=== PATIENT | male | born 1980 | race Caucasian/White ===

== ENCOUNTER 2021-09-06 09:06 | Day surgery (SDC) | payer OTHER ==
[2021-09-05 11:19] VITALS: BMI 27.3
[2021-09-06] MEDS ORDERED: KETAMINE HCL 500 MG/10 ML VIAL ONE (10:16)
[2021-09-06 10:48] LABS: ALBUMIN 4.1 g/dl (3.4-5.0); CALCIUM 9.5 mg/dl (8.5-10); CREATININE 0.9 mg/dl (0.55-1.3); HEMATOCRIT 45.7 % (35.4-49); HEMOGLOBIN 15.9 G/dL (11.7-16.9); MAGNESIUM 2.2 mg/dL (1.8-2.4); MCH 31.8 pg (25.7-33.7); MCHC 34.8 g/dl (32.0-35.9); MEAN CELL VOLUME 91.3 fl (80-96); MEAN PLT VOLUME 11.1 fl (7.5-11.1); PLATELET COUNT 142.3 10^3/uL (134-434); RBC 5.01 10^6/uL (4.00-5.60); RDW 13.7 % (11.9-15.9); TOT PROT 6.6 g/dl (6.4-8.2); WHITE BLOOD COUNT 9.8 10^3/uL (4.0-10.8)
[2021-09-06 11:18] LABS: PLATELET ESTIMATE ADEQUATE
[2021-09-06 12:05] VITALS: RESP 16; TEMP 98.6
[2021-09-06 12:08] VITALS: BP 121/75; PULSE 64
== END 2021-09-06 12:00 | disposition home or self-care (01) ==
LOC: FECT 09:06
PROVIDERS: ATTEND Psychiatry & Neurology Psychiatry
PROC: GZB4ZZZ Other Electroconvulsive Therapy (ICD-10-PCS; principal; 2021-09-06 10:38)
DX: F33.9 Major depressive disorder, recurrent, unspecified (principal)
CPT/HCPCS: 36415; 80053; 83735; 85027; 90870; 93005; 94760

== ENCOUNTER 2021-09-11 08:25 | Day surgery (SDC) | payer OTHER ==
[2021-09-06 12:26] VITALS: BMI 27.3
[2021-09-11 08:56] VITALS: RESP 18
[2021-09-11] MEDS ORDERED: KETAMINE HCL 200 MG/20 ML VIAL ONE (09:36)
[2021-09-11 11:33] VITALS: BP 131/79; PULSE 69; TEMP 98
== END 2021-09-11 11:15 | disposition home or self-care (01) ==
LOC: FECT 08:25
PROVIDERS: ATTEND Psychiatry & Neurology Psychiatry
PROC: GZB4ZZZ Other Electroconvulsive Therapy (ICD-10-PCS; principal; 2021-09-11 09:44)
DX: F33.2 Major depressive disorder, recurrent severe without psychotic features (principal)
CPT/HCPCS: 90870; 94760

== ENCOUNTER 2021-09-13 06:30 | Day surgery (SDC) | payer OTHER ==
[2021-09-05 11:41] VITALS: BMI 27.3
[2021-09-13] MEDS ORDERED: KETAMINE HCL 500 MG/10 ML VIAL ONE (07:50)
[2021-09-13 09:02] VITALS: RESP 18; TEMP 97.9
[2021-09-13 09:19] VITALS: BP 136/72; PULSE 68
== END 2021-09-13 09:59 | disposition home or self-care (01) ==
LOC: FECT 06:30
PROVIDERS: ATTEND Psychiatry & Neurology Psychiatry
PROC: GZB4ZZZ Other Electroconvulsive Therapy (ICD-10-PCS; principal; 2021-09-13 07:58)
DX: F33.2 Major depressive disorder, recurrent severe without psychotic features (principal)
CPT/HCPCS: 90870; 94760

== ENCOUNTER 2021-09-18 07:00 | Day surgery (SDC) | payer OTHER ==
[2021-09-17 13:40] VITALS: BMI 27.3
[2021-09-18] MEDS ORDERED: KETAMINE HCL 500 MG/10 ML VIAL ONE (08:18)
[2021-09-18 08:59] VITALS: TEMP 97.6
[2021-09-18 09:12] VITALS: RESP 18
[2021-09-18 11:09] VITALS: BP 129/89; PULSE 77
== END 2021-09-18 10:30 | disposition home or self-care (01) ==
LOC: FECT 07:00
PROVIDERS: ATTEND Psychiatry & Neurology Psychiatry
PROC: GZB4ZZZ Other Electroconvulsive Therapy (ICD-10-PCS; principal; 2021-09-18 08:28)
DX: F33.9 Major depressive disorder, recurrent, unspecified (principal)
CPT/HCPCS: 90870; 94760

== ENCOUNTER 2021-09-20 06:03 | Day surgery (SDC) | payer OTHER ==
[2021-09-20 06:47] VITALS: RESP 16; BMI 27.3
[2021-09-20] MEDS ORDERED: KETAMINE HCL 500 MG/10 ML VIAL ONE (07:51)
[2021-09-20] MEDS ORDERED: SUCCINYLCHOLINE CHLORIDE 200 MG/10 ML SYRINGE ONE (07:53)
[2021-09-20 09:51] VITALS: TEMP 97.8
[2021-09-20 09:55] VITALS: BP 138/91; PULSE 74
== END 2021-09-20 10:10 | disposition home or self-care (01) ==
LOC: FECT 06:03
PROVIDERS: ATTEND Psychiatry & Neurology Psychiatry
PROC: GZB4ZZZ Other Electroconvulsive Therapy (ICD-10-PCS; principal; 2021-09-20 08:01)
DX: F33.9 Major depressive disorder, recurrent, unspecified (principal)
CPT/HCPCS: 90870; 94760

== ENCOUNTER 2021-09-25 06:45 | Day surgery (SDC) | payer OTHER ==
[2021-09-20 11:03] VITALS: BMI 27.3
[2021-09-25] MEDS ORDERED: KETAMINE HCL 500 MG/10 ML VIAL ONE (07:34)
[2021-09-25 08:09] VITALS: TEMP 97.2
[2021-09-25 09:04] VITALS: RESP 18
[2021-09-25 09:24] VITALS: BP 150/90; PULSE 72
== END 2021-09-25 10:11 | disposition home or self-care (01) ==
LOC: FECT 06:45
PROVIDERS: ATTEND Psychiatry & Neurology Psychiatry
PROC: GZB4ZZZ Other Electroconvulsive Therapy (ICD-10-PCS; principal; 2021-09-25 07:44)
DX: F33.9 Major depressive disorder, recurrent, unspecified (principal)
CPT/HCPCS: 90870; 94760

== ENCOUNTER 2021-09-27 06:32 | Day surgery (SDC) | payer OTHER ==
[2021-09-20 11:07] VITALS: BMI 27.3
[2021-09-27] MEDS ORDERED: KETAMINE HCL 500 MG/10 ML VIAL ONE (08:26)
[2021-09-27 10:14] VITALS: TEMP 98.2
[2021-09-27 11:05] VITALS: RESP 16
[2021-09-27 11:57] VITALS: BP 129/90; PULSE 71
== END 2021-09-27 11:40 | disposition home or self-care (01) ==
LOC: FECT 06:32
PROVIDERS: ATTEND Psychiatry & Neurology Psychiatry
PROC: GZB4ZZZ Other Electroconvulsive Therapy (ICD-10-PCS; principal; 2021-09-27 08:48)
DX: F33.9 Major depressive disorder, recurrent, unspecified (principal)
CPT/HCPCS: 90870; 94760

== ENCOUNTER → 2021-10-02 | Day surgery (SDC) | payer OTHER ==
[2021-09-26 17:58] VITALS: BMI 27.3
[~2021-10-02] MED LIST: ACETAMINOPHEN 325 MG TABLET (FP) PO PRN; KETAMINE HCL 500 MG/10 ML VIAL ONE; LABETALOL HCL 5 MG/1 ML (100MG/20 ML VIAL) IVPUSH ONE; LACTATED RINGERS SOLUTION 1,000 ML IV SCH; METOPROLOL TARTRATE 5 MG/5 ML VIAL ONE; PROMETHAZINE HCL 25 MG/1 ML VIAL IVPUSH PRN
[2021-10-02 09:48] VITALS: RESP 16; TEMP 97.7
[2021-10-02 10:56] VITALS: BP 127/80; PULSE 66
== END | disposition home or self-care (01) ==
LOC: FECT 06:20
PROVIDERS: ATTEND Psychiatry & Neurology Psychiatry
PROC: GZB4ZZZ Other Electroconvulsive Therapy (ICD-10-PCS; principal; 2021-10-02 08:20)
DX: F32.A Depression, unspecified (principal)
CPT/HCPCS: 90870; 94760

== ENCOUNTER 2021-10-04 08:04 | Day surgery (SDC) | payer OTHER ==
[2021-09-26 18:11] VITALS: BMI 27.3
[2021-10-04] MEDS ORDERED: KETAMINE HCL 500 MG/10 ML VIAL ONE (09:27)
[2021-10-04] MEDS ORDERED: LABETALOL HCL 5 MG/1 ML (100MG/20 ML VIAL) IVPUSH ONE (09:55)
[2021-10-04 10:46] VITALS: RESP 18
[2021-10-04 10:51] VITALS: TEMP 97.7
[2021-10-04 11:20] VITALS: BP 144/100; PULSE 78
== END 2021-10-04 12:15 | disposition home or self-care (01) ==
LOC: FECT 08:04
PROVIDERS: ATTEND Psychiatry & Neurology Psychiatry
PROC: GZB4ZZZ Other Electroconvulsive Therapy (ICD-10-PCS; principal; 2021-10-04 09:38)
DX: F32.A Depression, unspecified (principal)
CPT/HCPCS: 90870; 94760

== ENCOUNTER 2021-10-09 07:00 | Day surgery (SDC) | payer OTHER ==
[2021-10-04 16:28] VITALS: BMI 27.3
[2021-10-09 09:42] VITALS: RESP 16
[2021-10-09 10:03] VITALS: BP 124/89; PULSE 78; TEMP 98.6
== END 2021-10-09 10:35 | disposition home or self-care (01) ==
LOC: FECT 07:00
PROVIDERS: ATTEND Psychiatry & Neurology Psychiatry
PROC: GZB4ZZZ Other Electroconvulsive Therapy (ICD-10-PCS; principal; 2021-10-09 08:39)
DX: F32.A Depression, unspecified (principal)
CPT/HCPCS: 90870; 94760

== ENCOUNTER 2021-10-11 06:21 | Day surgery (SDC) | payer OTHER ==
[2021-10-09 13:14] VITALS: BMI 27.3
[2021-10-11] MEDS ORDERED: KETOROLAC TROMETHAMINE 30 MG/1 ML VIAL ONE (07:26)
[2021-10-11] MEDS ORDERED: KETAMINE HCL 500 MG/10 ML VIAL ONE (07:26)
[2021-10-11] MEDS ORDERED: PROPOFOL 20 ML ONE (07:30)
[2021-10-11] MEDS ORDERED: LIDOCAINE HCL/PF 2% SDV 5ML VIAL ONE (07:30)
[2021-10-11] MEDS ORDERED: ONDANSETRON 4 MG/2 ML VIAL ONE (07:30)
[2021-10-11] MEDS ORDERED: SUCCINYLCHOLINE CHLORIDE 200 MG/10 ML SYRINGE ONE (07:31)
[2021-10-11 08:17] VITALS: TEMP 98
[2021-10-11 09:07] VITALS: RESP 18
[2021-10-11 09:09] VITALS: BP 124/86; PULSE 77
[2021-10-11] MEDS ORDERED: ONDANSETRON 4 MG/2 ML VIAL IVPUSH PRN (09:52)
[2021-10-11] MEDS ORDERED: LACTATED RINGERS SOLUTION 1,000 ML IV SCH (10:00)
== END 2021-10-11 09:05 | disposition home or self-care (01) ==
LOC: FECT 06:21
PROVIDERS: ATTEND Psychiatry & Neurology Psychiatry
PROC: GZB4ZZZ Other Electroconvulsive Therapy (ICD-10-PCS; principal; 2021-10-11 07:43)
DX: F33.2 Major depressive disorder, recurrent severe without psychotic features (principal)
CPT/HCPCS: 90870; 94760